=== PATIENT | female | born 1985 | race American Indian/Alaskan Native ===

== ENCOUNTER 2018-09-18 08:12 | Emergency (ER) | payer SELFPAY ==
[2018-09-18 08:17] VITALS: BP 127/80
--- NOTE | 2018-09-18 09:42 | Emergency Department Report ---
HPI - General Chief Complaint: Extremity Injury, Upper Time Seen by Provider: 09/18/18 09:28 - HPI HPI: 33-year-old female presents to the emergency department with some pain and infection next to the nail of her right ring finger that occurred overnight. The patient says that she was pulling off some of the skin next to her nail, the cuticles, and thinks that this caused her current symptoms. She had a small amount of bleeding and purulent drainage. She had not taken anything for her symptoms prior to arrival. No past medical history. ED Past Medical Hx - Past Medical History Previous Medical History?: No - Surgical History Past Surgical History?: No - Social History Smoking Status: Never Smoker Substance Use Type: None - Medications Home Medications: Home Medications Medication Instructions Recorded Confirmed Last Taken Type HYDROcodone/APAP 5-325 [[place] 1 each PO Q6HR PRN #6 tablet 09/18/18 Unknown Rx 5/325] Sulfamethoxazole/Trimethoprim 1 each PO BID #6 tablet 09/18/18 Unknown Rx [Bactrim DS TAB] ED Review of Systems ROS: Stated complaint: RT NAIL SWELLING/PAIN Other details as noted in HPI Comment: All other systems reviewed and negative Constitutional: denies: chills, fever Eyes: denies: eye pain, eye discharge, vision change ENT: denies: ear pain, throat pain Respiratory: denies: cough, shortness of breath, wheezing Cardiovascular: denies: chest pain, palpitations Gastrointestinal: denies: abdominal pain, nausea, diarrhea Genitourinary: denies: urgency, dysuria, discharge Musculoskeletal: joint swelling (right ring finger). denies: back pain Skin: change in color. denies: pruritus Neurological: denies: headache, weakness Physical Exam - Physical Exam Vital Signs: Vital Signs 09/18/18 08:13 Temperature 97.7 F Pulse Rate 69 Respiratory 18 Rate Blood Pressure 127/80 O2 Sat by Pulse 97 Oximetry Physical Exam: GENERAL: The patient is well-developed well-nourished. HEENT: Normocephalic. Atraumatic. Patient has moist mucous membranes. EYES: Extraocular motions are intact. NECK: Supple. Trachea is midline. CHEST/LUNGS: Clear to auscultation. There is no respiratory distress noted. HEART/CARDIOVASCULAR: Regular. There is no tachycardia. There is no obvious murmur. ABDOMEN: There is no abdominal distention. SKIN: There is some swelling, erythema and signs of purulence to the ulnar side of the right ring finger that appears consistent with a paronychia. NEURO: The patient is awake, alert, and oriented. The patient is cooperative. The patient has normal speech. MUSCULOSKELETAL: There is some tenderness to palpation around the right distal ring finger where the patient has a paronychia. There is no evidence of acute injury. ED Course Vital Signs 09/18/18 08:13 Temperature 97.7 F Pulse Rate 69 Respiratory 18 Rate Blood Pressure 127/80 O2 Sat by Pulse 97 Oximetry - I & D Right Finger Type of Procedure: Simple Site: paronychia to right ring finger Blade Size: 11 I & D Procedure: sterile drapes applied, sterile dressing applied Progress: A small incision was made with an 11 blade scalpel. There was about 1 mL of purulent drainage from the paronychia. ED Medical Decision Making - Medical Decision Making Patient has a right ring finger paronychia. An I&D was done with some purulent drainage returned. It was placed in a sterile dressing. The patient will go home on some antibiotics and with a small amount of pain medication. She will return with any worsening of her symptoms or any acute distress. - Differential Diagnosis paronychia, felon, cellulitis Critical Care Time: No Critical care attestation.: If time is entered above; I have spent that time in minutes in the direct care of this critically ill patient, excluding procedure time. ED Disposition Clinical Impression: Paronychia Disposition: DC-01 TO HOME OR SELFCARE Is pt being admited?: No Condition: Stable Instructions: Paronychia (ED) Additional Instructions: Soak the finger in some warm water a few times per day. Clean the area with soap and water and then make sure it remains dry. Follow-up with a primary care physician. Return to the emergency Department with any worsening of her symptoms or any acute distress. You have been prescribed a medication that can be sedating. Therefore, this medication cannot be taken prior to driving, working, being responsible for children, and cannot be mixed with alcohol of any quantity. Prescriptions: HYDROcodone/APAP 5-325 [[place] 5/325] 1 each PO Q6HR PRN #6 tablet PRN Reason: Pain Sulfamethoxazole/Trimethoprim [Bactrim DS TAB] 1 each PO BID #6 tablet Referrals: [facility] [Outside] - 3-5 Days Time of Disposition: 09:41
[2018-09-18] MEDS ORDERED: MOTRIN PO ONE ×2 (10:06→10:09)
== END 2018-09-18 10:10 | disposition home or self-care (01) ==
LOC: ED 08:12
DX: L03.011 Cellulitis of right finger (principal)
CPT/HCPCS: 99282